=== PATIENT | male | born 1950 | race Caucasian/White ===

== ENCOUNTER → 2017-01-01 | Outpatient (CLI) | payer OTHER ==
[2017-01-01 10:56] LABS: BASO % 0.3 %; BASO ABS # 0.02 K/uL (0-0.2); COMPLETE YES; EOS % 4.3 %; HEMATOCRIT 46.7 % (42-52); IG% 0.2 %; LYMPH % 31.3 %; LYMPH ABS # 2.05 K/uL (1.2-3.4); MEAN CELL VOLUME 99.2 fL (80-100); MEAN CORPUSCULAR HEMOGLOBIN 33.3 pg (25-34); MEAN CORPUSCULAR HGB CONC 33.6 g/dl (32-36); MEAN PLATELET VOLUME 9.9 fL (7.4-10.4); MONO % 9.5 %; NEUT % 54.4 %; PLATELET COUNT 207 K/uL (130-400); RED BLOOD COUNT 4.71 M/uL (4.7-6.1); WHITE BLOOD COUNT 6.54 K/uL (4.8-10.8)
[2017-01-01 11:22] LABS: ALT/SGPT 26 U/L (12-78); BLOOD UREA NITROGEN 10 mg/dl (7-18); BUN/CREATININE RATIO 12.5 (10-20); CALCIUM 9.3 mg/dl (8.5-10.1); CARBON DIOXIDE 30 mmol/L (21-32); CHLORIDE 106 mmol/L (98-107); CHOLESTEROL 149 mg/dl (0-200); CREATININE 0.76 mg/dl (0.60-1.40); GLUCOSE 87 mg/dl (70-99); POTASSIUM 4.3 mmol/L (3.5-5.1); SODIUM 140 mmol/L (136-145); TRIGLYCERIDES 53 mg/dl (0-150); VERY LOW DENSITY LIPOPROT CALC 11 mg/dl
[2017-01-01 11:32] LABS: ALKALINE PHOSPHATASE 80 U/L (45-117); AST/SGOT 23 U/L (15-37); CHOLESTEROL/HDL RATIO 2.6; HDL CHOLESTEROL 58 mg/dl; LDL CHOLESTEROL CALCULATED 80 mg/dl; THYROID STIMULATING HORMONE 0.946 uIu/ml (0.300-4.500)
== END | disposition home or self-care (01) ==
LOC: C.LABBC 08:07
PROVIDERS: ATTEND Internal Medicine
DX: E78.5 Hyperlipidemia, unspecified (principal); I25.10 Atherosclerotic heart disease of native coronary artery without angina pectoris; K58.9 Irritable bowel syndrome, unspecified; N40.0 Benign prostatic hyperplasia without lower urinary tract symptoms

== ENCOUNTER → 2017-04-08 | Outpatient (CLI) | payer OTHER | END | disposition home or self-care (01) | LOC: C.LABBC 09:55 | PROVIDERS: ATTEND Internal Medicine | DX: R97.20 Elevated prostate specific antigen [PSA] (principal); G31.84 Mild cognitive impairment of uncertain or unknown etiology ==

== ENCOUNTER → 2017-04-21 | Outpatient (CLI) | payer OTHER ==
--- NOTE | 2017-04-22 06:08 | SPLIT NIGHT TECHNICIAN REPORT ---
[facility] Split Night Polysomnogram - Backer Up Report Study date: 04/21/2017 Referring Physician: DR. Daisy WALKER Name: PAUL MILLARD Backer Up: Magdalena Morris, PSGT. Date of : 1950 Height: 66 years, Height 5' 8" Sex: Male Weight: 136 lbs Age: 66 Neck Circum:15 inches BMI: Medications: 20.68 Simvastatin 40 mg, Aspirin 81 mg, Fish Oil 1000 mg, Vit. -D-3 5000 unit, Vit. -C 500 mg. Patient History 66 year old male here for a split night study. 2016 pt. had a in home sleep study and had a AHI of 24.9, he was not treated at that time.ESS=3, NECK=15 inches. Parameters Monitored NPSG: E1-M2, E2-M1, Fp1-M2, Fp2-M1, F3-M2, F4-M2, F4-M1, C3-M2, C4-M2, C4-M1, O1-M2, O2-M2, O2-M1, T3-M2, T4-M1, P3-M2, P4-M1, CHIN1, CHIN2, HR, EKG, Legs, PFLOW, SNOR, FLOW, CFLOW, Tidal Volume, THOR, ABDO, SpO2, PLTH, CPRESS, ETCO2 Wave, ETCO2, pH SLEEP SUMMARY DATA DIAGNOSTIC TREATMENT Lights Out: 10:02:35 PM NONE Lights On: 2:11:35 AM 5:32:35 AM Total Recording Time (TRT): 248.6 min. 135.9 min. Total Sleep Time (TST): 148.5 min. 32.0 min. NREM Time: 148.5 min. 32.0 min. REM Time: 0.0 min. 0.0 min. Sleep Period Time (SPT): 228.0 min. 86.5 min. Sleep Efficiency (SE): 60 % 24 % Sleep Latency: 19.0 min. NONE min. Arousal Index: 36.0 33.8 PAP Treatment Levels: 4, 5 * Optimal Pressure(s) SLEEP STAGING DATA DIAGNOSTIC TREATMENT Duration (min) TST % Duration (min) TST % Stage Wake: 100.1 min. -- 103.9 min. -- WASO: 81.5 min. -- 54.5 min. -- NREM: 148.5 min. 100 % 32.0 min. 100 % Stage N1: 17.0 min. 11 % 6.0 min. 19 % Stage N2: 131.5 min. 89 % 26.0 min. 81 % Stage N3: 0.0 min. 0 % 0.0 min. 0 % REM: 0.0 min. 0 % 0.0 min. 0 % POSITIONAL DATA Event Count Index Event Count Index Supine: 64 35.4 1 4.1 Supine NREM: 64 35.4 1 4.1 Supine REM: N/A N/A N/A N/A Non-Supine: 27 40.5 0 0.0 Non-Supine NREM: 27 40.5 0 0.0 Non-Supine REM: N/A N/A N/A N/A AROUSAL SUMMARY DATA: Event Count Index Event Count Index Apnea Arousals: 10 16.2 1 1.9 Hypopnea Arousals: 26 10.5 0 0.0 Snore Arousals: 14 5.7 1 1.9 PLM Arousals: 2 0.8 3 5.6 Non-Specific Arousals: 34 13.7 13 24.4 Total Arousals: 89 36.0 18 33.8 MYOCLONUS (PLM) Event Count Index Event Count Index PLM: 66 26.7 24 45.0 PLM AROUSAL: 2 0.8 3 5.6 PLM W/O AROUSAL 66 26.7 21 39.4 PLM W/RESP EVENT 15 0.0 0 0.0 MYOCLONUS (PLM) Event Count Index Event Count Index LM: 3 14.1 6 11.3 LM AROUSAL: 3 1.2 0 0.0 LM W/O AROUSAL LM W/RESP EVENT LM NON SPECIFIC 70 28.3 27 50.6 HEART RATE DATA DIAGNOSTIC TREATMENT Sleep (bpm): 55 53 REM (bpm): N/A N/A NREM (bpm): 95 94 Tachycardia Count: 0 0 Tachycardia Duration: 0.00 0 Bradycardia Count: 0 0 Bradycardia Duration: 0.00 0 DIAGNOSTIC PORTION TREATMENT PORTION RESPIRATORY DATA Event Count Index Event Count Index AHI: -- 36.8 -- 1.9 RDI: -- 36.8 -- 2 Obstructive Apnea: 36 14.5 0 0.0 Central Apnea: 0 0.0 1 1.9 Mixed Apnea: 4 1.6 0 0.0 Hypopnea: 51 20.6 0 0.0 RERA: 0 0.0 0 0.0 Total Apneas: 40 16.2 1 1.9 RESPIRATORY DATA REM NREM SLEEP REM NREM SLEEP Supine Position: Obstructive Apneas: N/A 19 19 N/A 0 0 Central Apneas: N/A 0 0 N/A 1 1 Mixed Apneas: N/A 3 3 N/A 0 0 Hypopneas: N/A 42 42 N/A 0 0 RERA N/A 0 0 N/A 0 0 Total Supine Events: N/A 64 64 N/A 1 1 Supine AHI: N/A 35.4 35.4 N/A 4.1 4.1 Supine RDI: N/A 35.4 35.4 N/A 4.1 4.1 REM NREM SLEEP REM NREM SLEEP Non-Supine Position: Obstructive Apneas: N/A 17 17 N/A 0 0 Central Apneas: N/A 0 0 N/A 0 0 Mixed Apneas: N/A 1 1 N/A 0 0 Hypopneas: N/A 9 9 N/A 0 0 RERA N/A 0 0 N/A 0 0 Total Supine Events: N/A 27 27 N/A 0 0 Supine AHI: N/A 40.5 40.5 N/A 0.0 0.0 Supine RDI: N/A 40.5 40.5 N/A 0.0 0.0 OXYGEN DESTAURATION DATA: Event Count Index Event Count Index REM Desaturations: N/A N/A N/A N/A NREM Desaturations: 84 33.9 1 1.9 SNORE DATA DIAGNOSTIC TREATMENT Snore Time: 5.7 3:01:05 AM Snore TST%: 3 6 Snore Arousal Count: 14 1 Snore Arousal Index: 5.7 1.9 Desaturation Event Summary: Minimum %SpO2 Event Count Mean/Min/Max Duration(sec.) Desaturation Index % Time In Bed > 90 85 30.5 / 15.3 / 59.7 13.6 99.0 86 - 90 0 N/A 0.0 1.0 81 - 85 0 N/A 0.0 0.0 76 - 80 0 N/A 0.0 0.0 71 - 75 0 N/A 0.0 0.0 66 - 70 0 N/A 0.0 0.0 61 - 65 0 N/A 0.0 0.0 56 - 60 0 N/A 0.0 0.0 51 - 55 0 N/A 0.0 0.0 < 50 0 N/A 0.0 0.0 OXYGEN SATURATION DATA DIAGNOSTIC TREATMENT SpO2 Mean Sleep: 95 % 94 % SpO2 Mean REM: N/A % N/A % SpO2 Mean NREM: 95 % 94 % SpO2 Minimum Sleep: 87 % 92 % SpO2 Minimum REM: N/A % N/A % SpO2 Minimum NREM: 87 % 92 % Time Below 90% (TST): 1.3 0.0 Time Below 88% (TST): 0.1 0.0 Total REM NREM Awake <50% 0.0 min. 0.0 min. 0.0 min. 0.0 min. 51 - 60% 0.0 min. 0.0 min. 0.0 min. 0.0 min. 61 - 70% 0.0 min. 0.0 min. 0.0 min. 0.0 min. 71 - 80% 0.0 min. 0.0 min. 0.0 min. 0.0 min. 81 - 90% 3.7 min. 0.0 min. 3.5 min. 0.1 min. 91 - 100% 376.4 min. 0.0 min. 177.0 min. 199.4 min. Average 95 0 95 95 Minimum SpO2 87 N/A 87 90 Desaturation Event Index 13.3 0.0 28.3 0.0 # Desat. Events below 89% 4 N/A 4 N/A Time(%) with Saturation below 89% 0.1 0.0 0.1 0.0 Time(min.) with Saturation below 89% 0.4 0.0 0.4 0.0 Recording Backer Up Comments: Split -Night: Mr. Millard slept in the right, left, and supine positions. No cardiac arrhythmia or PLM's noted. No bruxism noted. Snoring was noted and scored as a 3 on a scale of 1 through 5. (0=no snoring, 5=snoring loud enough to be heard through a closed door or down the [address]irston way) At2:11 am, MR. Millard has met specific Split-Night criteria during the diagnostic portion of this study. CPAP was initiated at +4 CMH2O and up-titrated to an optimal level of +5 CMH2O, which nearly eliminated all respiratory events and snoring. A medium Res Med quattro, was used during titration Mr. Millard awoke to use the restroom one time during the night. Mr. Millard stated, I did not sleep as well as I do when I am in my own bed. The final report will be interpreted and signed by a sleep physician. The completed physician report will then be placed in the patient medical record Patient did not sleep well, the split wasn't able to happen until 2:11 am.Once the titration started the patient had a long period of wakefulness. Patient complained of the bridge of his nose hurting from the mask when he woke. Therapy Event: Therapy (cm H20) 0 4 5 Total Time at Pressure (min.) 248.6 122.8 13.2 TST at Pressure (min.) 148.5 28.8 3.2 # Periods 1 1 1 Sleep Onset (min.) 19.0 39.4 0.0 REM Onset (min.) N/A N/A N/A Sleep Efficiency % 59 23 24 Wakefulness (%) 40.3 76.5 75.9 Wakefulness (min.) 100.1 93.9 10.0 NREM 1 (%) 6.8 3.9 9.0 NREM 1 (min.) 17.0 4.8 1.2 NREM 2 (%) 52.9 19.5 15.2 NREM 2 (min.) 131.5 24.0 2.0 NREM 3 (%) 0.0 0.0 0.0 NREM 3 (min.) 0.0 0.0 0.0 REM (%) 0.0 0.0 0.0 REM (min.) 0.0 0.0 0.0 # Arousals 89 14 4 Arousal Index 36.0 29.1 75.4 # Snore 128 5 1 Snore Index 51.7 10.4 18.9 AHI 36.8 2.1 0.0 AHI Supine 35.4 5.2 0.0 AHI Non-Supine 40.5 0.0 N/A NREM AHI 36.8 2.1 0.0 REM AHI N/A N/A N/A RDI 36.8 2.1 0.0 # Obstructive 36 0 0 # Central Ap 0 1 0 # Mixed 4 0 0 # Hypopneas 51 0 0 RERAS 0 0 0 Total Respiratory Events 91 1 0 Time Below SpO2 89.00% (min.) 0.4 0.0 0.0 Mean NREM SpO2 (%) 95 94 95 Mean REM SpO2 (%) N/A N/A N/A Mean Sleep SpO2 (%) 95 94 95 Min NREM SpO2 (%) 87 92 94 Min REM SpO2 (%) N/A N/A N/A Position Supine (min.) 108.5 11.6 3.2 Position Non-supine (min.) 40.0 17.2 0.0 LM Index Sleep 40.8 58.3 37.7 LM Index NREM 40.8 58.3 37.7 LM Index REM N/A N/A N/A Mean Heart Rate (bpm) 55 53 54 Min Heart Rate (bpm) 51 50 52
--- NOTE | 2017-04-24 14:01 | POLYSOMNOGRAPH REPORT ---
CLINICAL DATA: A 66-year-old male with BMI of 20.68, referred by Dr. Arsen Messina. He had a home sleep study in 2016 which showed moderate sleep apnea and was not treated. His [place] sleepiness score was 3/24. This was a split night study. SLEEP ARCHITECTURE: For the diagnostic portion of the study, total sleep period time was 228 minutes. Total sleep time was 148.5 minutes, all non-REM sleep. Sleep onset latency was 19 minutes. Sleep efficiency was 60%. Sleep consisted of stage N1 11% and stage N2 89%. For the treatment portion of the study, sleep period time was 86.5 minutes. Total sleep time was 32 minutes, all non-REM sleep. Sleep latency was immediate. Sleep efficiency was 24%. Sleep consisted of stage N1 19 and stage N2 81%. AROUSAL DATA: For the diagnostic portion of the study, 89 arousals were recorded for an index of 36 per hour. For the treatment portion of the study, 18 arousals were recorded for an index of 33.8 per hour. PERIODIC LIMB MOVEMENT DATA: Prior to treatment, 70 limb movements during sleep were noted for an index of 28.3 per hour. During treatment, 27 limb movements during sleep were noted for an index of 50.6 per hour. ECHOCARDIOGRAM: Heart ranged from 53-95 beats per minute. No arrhythmias were noted. RESPIRATORY DATA: Severe sleep apnea was diagnosed prior to treatment. The diagnostic AHI was 36.8. There were 36 obstructive and 4 mixed apneic episodes. There were 51 hypopneic episodes. The average treatment AHI was 1.9. There was 1 central apneic episode recorded. OXIMETRY DATA: Very mild nocturnal hypoxemia was seen prior to treatment. Oxygen joseph was 87% prior to treatment. Mean saturation for the treatment was 94%. TECHNICAL DELIVERY MANAGER'S COMMENTS AND TREATMENT SUMMARY: The patient slept in the right, left, and supine positions. No bruxism was noted. Snoring was moderate, rated 3 on a scale of 1-5. At 2:11 a.m., the patient met split night criteria. He used a ResMed Quattro face mask. He was treated with CPAP up to 5 cm water pressure. At his final pressure setting, patient slept for 1 minute with an AHI of 0. At 4 cm of water pressure, the patient slept for 39 minutes with an AHI of 2.1. IMPRESSION: Severe sleep apnea/hypopnea with diagnostic apnea/hypopnea index of 36.8, improved on CPAP 5 cm of water pressure. However, the patient did not reach supine REM sleep. RECOMMENDATIONS: The patient could be started on the above noted treatment regimen. However, since he did not reach supine REM sleep, use auto CPAP or sleep medicine consultation may be of benefit. Clinical correlation is needed. MTDD
== END | disposition home or self-care (01) ==
LOC: C.NEUR 20:00
PROVIDERS: ATTEND Internal Medicine
DX: G47.30 Sleep apnea, unspecified (principal)

== ENCOUNTER → 2017-06-25 | Outpatient (CLI) | payer OTHER | END | disposition home or self-care (01) | LOC: C.LABBC 07:25 | PROVIDERS: ATTEND Urology | DX: N40.1 Benign prostatic hyperplasia with lower urinary tract symptoms (principal); N13.8 Other obstructive and reflux uropathy ==